=== PATIENT | male | born 1975 | race Caucasian/White ===

== ENCOUNTER 2016-07-05 10:16 | Inpatient (IN) | payer OTHER ==
[~2016-07-05] VITALS: Ht 177.8 cm; Wt 72.6 kg
[~2016-07-05 10:16] MED LIST: HYDROCODONE-AP1 EAC6 PO; LISINOPRIL10 MG PO; LISINOPRIL20 MG PO; NEXIUM40 MG PO; NORCO 10-325 T1 EACH PO; OXYCODONE HCL 55 MG PO; PRILOSEC OTC20 MG PO; TRINATE TABLET1 TAB PO
[2016-07-05 10:17] VITALS: BP 151/110
[2016-07-05] MEDS ORDERED: PERCOCET 10-321 EACH PO (10:29)
[2016-07-05 10:37] LABS: HEMATOCRIT 44.8 % (42.0-52.0); HEMOGLOBIN 14.5 gm/dL (14.0-18.0); MCH 29.1 pg (26.0-34.0); MCHC 32.3 g/dL (28.0-37.0); MCV 90.2 fL (80.0-100.0); PLATELET COUNT 397 thou/uL (150-400); RBC 4.96 mil/uL (4.50-6.00); RDW 17.9 % (10.5-14.5); WBC 18.6 thou/uL (4.0-11.0)
[2016-07-05 10:38] LABS: MANUAL DIFF YES
[2016-07-05 10:44] LABS: ANION GAP 10 mmol/L (7-16); BUN 8 mg/dL (7-18); CALCIUM 8.8 mg/dL (8.5-10.1); CHLORIDE 103 mmol/L (98-107); CO2 28 mmol/L (21-32); CREATININE 0.8 mg/dL (0.7-1.3); GLUCOSE 153 mg/dL (74-106); POTASSIUM 3.4 mmol/L (3.5-5.1); SODIUM 141 mmol/L (136-145)
[2016-07-05 10:48] LABS: ALBUMIN 3.8 g/dL (3.4-5.0); ALKALINE PHOSPHATASE 127 U/L (46-116); DIRECT BILIRUBIN < 0.1 mg/dL (<0.1-0.3); SGOT 35 U/L (15-37); SGPT 35 U/L (30-65); TOTAL BILIRUBIN 0.1 mg/dL (<0.1-1.0); TOTAL PROTEIN 7.7 g/dL (6.4-8.2)
[2016-07-05 11:00] LABS: ABSOLUTE NEUTROPHILS 17.1 thou/uL (1.4-8.2); AMYLASE 63 U/L (25-115); ANISOCYTOSIS 1+; POIKILOCYTOSIS SLIGHT; TOTAL CELL COUNT 100
[2016-07-05 12:37] VITALS: BP 139/98
[2016-07-05 16:30] VITALS: BP 139/108
[2016-07-05 20:30] VITALS: BP 134/99
[2016-07-06 04:30] VITALS: BP 130/92
[2016-07-06 05:48] LABS: ABSOLUTE NEUTROPHILS 3.6 thou/uL (1.4-8.2); BASOPHILS 0.5 % (0.0-2.0); HEMATOCRIT 34.3 % (42.0-52.0); LYMPHOCYTES 23.8 % (24.0-44.0); MCH 29.3 pg (26.0-34.0); MCV 91.5 fL (80.0-100.0); MONOCYTES 7.7 % (1.0-8.0); RBC 3.75 mil/uL (4.50-6.00); RDW 17.5 % (10.5-14.5); WBC 5.4 thou/uL (4.0-11.0)
[2016-07-06 05:54] LABS: PLATELET COUNT 205 thou/uL (150-400)
[2016-07-06 05:55] LABS: MANUAL DIFF NO
[2016-07-06 06:13] LABS: ALBUMIN 2.5 g/dL (3.4-5.0); CREATININE 0.6 mg/dL (0.7-1.3); TOTAL BILIRUBIN 0.3 mg/dL (<0.1-1.0); TOTAL PROTEIN 5.5 g/dL (6.4-8.2)
[2016-07-06 07:38] VITALS: BP 153/114
[2016-07-06 19:56] VITALS: BP 150/108
[2016-07-07 06:00] VITALS: BP 167/100
[2016-07-07 06:00] LABS: ABSOLUTE NEUTROPHILS 4.2 thou/uL (1.4-8.2); BASOPHILS 0.7 % (0.0-2.0); EOSINOPHILS 2.4 % (0.0-3.0); HEMATOCRIT 36.7 % (42.0-52.0); HEMOGLOBIN 11.7 gm/dL (14.0-18.0); LYMPHOCYTES 25.3 % (24.0-44.0); MCH 29.4 pg (26.0-34.0); MCV 91.7 fL (80.0-100.0); MONOCYTES 8.7 % (1.0-8.0); PLATELET COUNT 210 thou/uL (150-400); POLYS 62.9 % (36.0-66.0); RDW 17.6 % (10.5-14.5); WBC 6.6 thou/uL (4.0-11.0)
[2016-07-07 06:02] LABS: MANUAL DIFF NO
[2016-07-07 06:05] LABS: CALCIUM 8.9 mg/dL (8.5-10.1); CREATININE 0.7 mg/dL (0.7-1.3); POTASSIUM 3.5 mmol/L (3.5-5.1)
[2016-07-07 07:58] VITALS: BP 158/100
[2016-07-07 09:26] LABS: AMYLASE 31 U/L (25-115)
[2016-07-07 15:24] VITALS: BP 166/108
[2016-07-07 20:00] VITALS: BP 145/97
[2016-07-08 04:30] VITALS: BP 153/99
[2016-07-08 04:36] LABS: ABSOLUTE NEUTROPHILS 2.8 thou/uL (1.4-8.2); BASOPHILS 1.1 % (0.0-2.0); EOSINOPHILS 3.8 % (0.0-3.0); HEMATOCRIT 34.8 % (42.0-52.0); HEMOGLOBIN 11.2 gm/dL (14.0-18.0); LYMPHOCYTES 23.6 % (24.0-44.0); MCH 29.4 pg (26.0-34.0); MCHC 32.3 g/dL (28.0-37.0); MONOCYTES 10.3 % (1.0-8.0); PLATELET COUNT 188 thou/uL (150-400); POLYS 61.2 % (36.0-66.0); RBC 3.82 mil/uL (4.50-6.00); RDW 17.4 % (10.5-14.5); WBC 4.6 thou/uL (4.0-11.0)
[2016-07-08 04:40] LABS: MANUAL DIFF NO
[2016-07-08 04:57] LABS: CALCIUM 8.2 mg/dL (8.5-10.1); CREATININE 0.7 mg/dL (0.7-1.3); POTASSIUM 3.5 mmol/L (3.5-5.1)
[2016-07-08 07:22] VITALS: BP 143/86
[2016-07-08 15:22] VITALS: BP 156/108
[2016-07-08 19:27] VITALS: BP 129/59
[2016-07-08 19:37] VITALS: BP 135/61; BP 154/111
[2016-07-09 04:47] VITALS: BP 165/116
[2016-07-09 06:02] LABS: HEMATOCRIT 33.6 % (42.0-52.0); MCH 29.9 pg (26.0-34.0); MCHC 32.7 g/dL (28.0-37.0); MCV 91.5 fL (80.0-100.0); PLATELET COUNT 198 thou/uL (150-400); RBC 3.67 mil/uL (4.50-6.00); RDW 17.2 % (10.5-14.5); WBC 4.5 thou/uL (4.0-11.0)
[2016-07-09 06:03] LABS: MANUAL DIFF YES
[2016-07-09 06:19] LABS: CALCIUM 8.6 mg/dL (8.5-10.1); CREATININE 0.9 mg/dL (0.7-1.3); POTASSIUM 3.5 mmol/L (3.5-5.1)
[2016-07-09 07:54] LABS: ABSOLUTE NEUTROPHILS 1.9 thou/uL (1.4-8.2); TOTAL CELL COUNT 100
[2016-07-09 08:00] LABS: ANISOCYTOSIS 1+
[2016-07-09 08:01] LABS: OVALOCYTES 1+
[2016-07-09 20:30] VITALS: BP 157/103
[2016-07-10 06:15] VITALS: BP 146/92
[2016-07-10 07:03] VITALS: BP 144/99
[2016-07-10 15:49] VITALS: BP 138/101
[2016-07-10 20:00] VITALS: BP 175/109
[2016-07-11 03:10] VITALS: BP 186/102
[2016-07-11 06:04] LABS: CALCIUM 9.3 mg/dL (8.5-10.1); CREATININE 0.7 mg/dL (0.7-1.3); POTASSIUM 3.6 mmol/L (3.5-5.1)
[2016-07-11 07:46] VITALS: BP 140/101
[2016-07-11 15:42] VITALS: BP 152/99
[2016-07-11 20:00] VITALS: BP 113/72
[2016-07-12 04:59] VITALS: BP 133/87
[2016-07-12 05:21] LABS: HEMATOCRIT 32.5 % (42.0-52.0); HEMOGLOBIN 10.7 gm/dL (14.0-18.0); MCH 29.8 pg (26.0-34.0); MCHC 33.1 g/dL (28.0-37.0); MCV 90.2 fL (80.0-100.0); RBC 3.6 mil/uL (4.50-6.00); RDW 18.1 % (10.5-14.5)
[2016-07-12 05:36] LABS: CALCIUM 8.7 mg/dL (8.5-10.1); CREATININE 0.8 mg/dL (0.7-1.3)
[2016-07-12 07:32] VITALS: BP 127/83
[2016-07-12 15:45] VITALS: BP 138/93
[2016-07-12 20:00] VITALS: BP 126/84
[2016-07-13 04:43] VITALS: BP 119/83
[2016-07-13 07:38] VITALS: BP 139/100
[2016-07-13 11:40] VITALS: BP 138/92
[2016-07-13 15:21] VITALS: BP 125/80
[2016-07-13 20:00] VITALS: BP 120/78
[2016-07-14 04:30] VITALS: BP 114/82
[2016-07-14 07:24] VITALS: BP 120/72
[2016-07-14] MEDS ORDERED: PERCOCET 10-321 EACH PO (08:40)
[2016-07-14 10:34] VITALS: BP 120/72
[2016-07-14 10:46] VITALS: BP 120/72
== END 2016-07-14 13:29 | disposition home or self-care (01) | DRG 439 ==
LOC: ER 10:16 → 4E 12:15 → EROBS 12:15 → 4E 12:57
PROVIDERS: Family Medicine; Internal Medicine Gastroenterology; Nurse Practitioner Family
PROC: 05H933Z Insertion of Infusion Device into Right Brachial Vein, Percutaneous Approach (ICD-10-PCS; principal; 2016-07-11)
PROC: B54MZZA Ultrasonography of Right Upper Extremity Veins, Guidance (ICD-10-PCS; principal; 2016-07-11)
DX: K85.90 Acute pancreatitis without necrosis or infection, unspecified (principal); K86.3 Pseudocyst of pancreas; F17.210 Nicotine dependence, cigarettes, uncomplicated; K86.1 Other chronic pancreatitis; G89.29 Other chronic pain; F10.10 Alcohol abuse, uncomplicated; Y90.9 Presence of alcohol in blood, level not specified; I10 Essential (primary) hypertension; Z91.041 Radiographic dye allergy status; Z91.09 Other allergy status, other than to drugs and biological substances; Z90.49 Acquired absence of other specified parts of digestive tract; Z71.6 Tobacco abuse counseling; Z93.4 Other artificial openings of gastrointestinal tract status; Z79.899 Other long term (current) drug therapy
CPT/HCPCS: 10183; 10783; 27000

== ENCOUNTER 2018-07-12 00:58 | Emergency (ER) | payer OTHER ==
[~2018-07-12] VITALS: Ht 177.8 cm; Wt 74.8 kg
[~2018-07-12 00:58] MED LIST changes: +PERCOCET 10-321 EACH PO
[2018-07-12 02:03] LABS: ABSOLUTE NEUTROPHILS 2.8 thou/uL (1.4-8.2); BASOPHILS 0.5 % (0.0-2.0); EOSINOPHILS 1.7 % (0.0-3.0); HEMATOCRIT 34.3 % (42.0-52.0); HEMOGLOBIN 11.2 gm/dL (14.0-18.0); LYMPHOCYTES 30.3 % (24.0-44.0); MCH 33.8 pg (26.0-34.0); MCHC 32.6 g/dL (28.0-37.0); MCV 103.7 fL (80.0-100.0); MONOCYTES 6.1 % (1.0-8.0); PLATELET COUNT 453 thou/uL (150-400); POLYS 61.4 % (36.0-66.0); RBC 3.31 mil/uL (4.50-6.00); RDW 16.7 % (10.5-14.5); WBC 4.5 thou/uL (4.0-11.0)
[2018-07-12 02:11] LABS: CREATININE 0.5 mg/dL (0.7-1.3); POTASSIUM 3.4 mmol/L (3.5-5.1)
[2018-07-12 02:18] LABS: ALBUMIN 2.2 g/dL (3.4-5.0); TOTAL BILIRUBIN 0.1 mg/dL (<0.1-1.0); TOTAL PROTEIN 6.4 g/dL (6.4-8.2)
[2018-07-12] MEDS ORDERED: CARAFATE 1 GM TA1 G1 PO (04:53)
[2018-07-12] MEDS ORDERED: ZOFRAN ODT4 MG PO (04:53)
[2018-07-12] MEDS ORDERED: PERCOCET 7.5-31 EACH PO (04:53)
[2018-07-12] MEDS ORDERED: PRILOSEC 20 MG20 MG PO (04:53)
[2018-07-12 05:07] VITALS: BP 135/98
== END 2018-07-12 05:09 | disposition home or self-care (01) ==
LOC: ER 00:58
PROVIDERS: Emergency Medicine
DX: K20.9 Esophagitis, unspecified (principal); K29.70 Gastritis, unspecified, without bleeding; I10 Essential (primary) hypertension; Z90.49 Acquired absence of other specified parts of digestive tract; F17.210 Nicotine dependence, cigarettes, uncomplicated; Z91.041 Radiographic dye allergy status; Z88.8 Allergy status to other drugs, medicaments and biological substances

== ENCOUNTER 2018-08-23 23:21 | Emergency (ER) | payer OTHER ==
[~2018-08-23] VITALS: Ht 177.8 cm; Wt 68.0 kg
[~2018-08-23 23:21] MED LIST changes: +CARAFATE 1 GM TA1 G1 PO; +PERCOCET 7.5-31 EACH PO; +PRILOSEC 20 MG20 MG PO; +ZOFRAN ODT4 MG PO
[2018-08-24 01:58] LABS: ABSOLUTE NEUTROPHILS 6.2 thou/uL (1.4-8.2); BASOPHILS 0.5 % (0.0-2.0); EOSINOPHILS 0.2 % (0.0-3.0); HEMATOCRIT 40.5 % (42.0-52.0); HEMOGLOBIN 13.1 gm/dL (14.0-18.0); MCH 31.6 pg (26.0-34.0); MCHC 32.2 g/dL (28.0-37.0); MCV 98.1 fL (80.0-100.0); MONOCYTES 4.7 % (1.0-8.0); PLATELET COUNT 538 thou/uL (150-400); POLYS 77.6 % (36.0-66.0); RBC 4.13 mil/uL (4.50-6.00); RDW 15.6 % (10.5-14.5)
[2018-08-24 02:05] LABS: CALCIUM 7.7 mg/dL (8.5-10.1); CREATININE 0.6 mg/dL (0.7-1.3); POTASSIUM 4.2 mmol/L (3.5-5.1)
[2018-08-24] MEDS ORDERED: ONDANSETRON HCL4 M2 PO (02:06)
[2018-08-24] MEDS ORDERED: BENTYL 20 MG TA20 M1 PO (02:06)
[2018-08-24 02:11] LABS: ALBUMIN 2.1 g/dL (3.4-5.0); TOTAL BILIRUBIN 0.3 mg/dL (<0.1-1.0); TOTAL PROTEIN 6.7 g/dL (6.4-8.2)
[2018-08-24 02:50] VITALS: BP 180/121
== END 2018-08-24 02:55 | disposition home or self-care (01) ==
LOC: ER 23:21
PROVIDERS: Emergency Medicine
DX: R10.13 Epigastric pain (principal); F17.210 Nicotine dependence, cigarettes, uncomplicated; I10 Essential (primary) hypertension; Z91.041 Radiographic dye allergy status; Z91.048 Other nonmedicinal substance allergy status; Z90.49 Acquired absence of other specified parts of digestive tract